=== PATIENT | male | born 1965 | race Caucasian/White ===

== ENCOUNTER 2017-02-28 15:36 | Emergency (ER) | payer MEDICAID, OTHER ==
[~2017-02-28] VITALS: Ht 185.4 cm; Wt 87.5 kg
[~2017-02-28 15:36] MED LIST: BACTDS PO; CEPH-443 PO; HYDR-3498 PO; HYDR-762 PO; IBUP-1542 PO; NAPR-260 PO
[2017-02-28 16:13] VITALS: Ht 185.4 cm; Wt 87.5 kg
[2017-02-28] MEDS ORDERED: KETOROLAC 30 MG INJ IM STA (18:21)
--- NOTE | 2017-02-28 19:22 | RADRPT ---
PROCEDURE: US Lower extremity Venous. CLINICAL INDICATION: right leg pain TECHNIQUE: Multiple sonographic images of the right lower extremity deep venous system was obtaine d utilizing grayscale, color-flow, compressive sonography and doppler imaging with augmentation. Th e images were reviewed on a PACS workstation. COMPARISON: None. FINDINGS: There is normal compressibility and flow within the right common femoral, deep femoral, superficial femoral, posterior tibial, peroneal and popliteal veins. IMPRESSION: No sonographic evidence for deep venous thrombosis. RPTAT:AAJJ Physician Carole Date Time Electronically viewed and signed by Physician Carole on 02/28/2017 19:22 /
--- NOTE | 2017-02-28 19:29 | RADRPT ---
PROCEDURE: XR Ankle. CLINICAL INDICATION: Right ankle pain TECHNIQUE: 3 views of the right ankle were performed. COMPARISON: Radiographs of the right ankle December 13:16 FINDINGS: There is a remote fracture deformity of the calcaneus. There is no definite acute fracture. There is some bone proliferation along the posterior subtalar joint likely degenerative and related to pos t-traumatic arthrosis, less likely extraarticular coalition. There is mild lateral soft tissue swel ling. Talar dome appears normal. IMPRESSION: 1. Remote healed post-traumatic deformity of the calcaneus with post-traumatic posterior subtalar ar throsis. Consider CT or MRI for further assessment as clinically warranted. 2. No radiographic evidence of acute fracture. 3. Mild lateral soft tissue swelling. RPTAT: UU .Wood Mackenzie MD, MD Date Time Electronically viewed and signed by .Wood Mackenzie MD, on 02/28/2017 19:29 .K/
--- NOTE | 2017-02-28 19:30 | RADRPT ---
PROCEDURE: XR Foot. CLINICAL INDICATION: Right foot and ankle pain TECHNIQUE: 3 views of the right foot were performed. COMPARISON: Radiographs of the right ankle December 13:16 FINDINGS: There is a remote fracture deformity of the calcaneus. There is no definite acute fracture. There is some bone proliferation along the posterior subtalar joint likely degenerative and related to pos t-traumatic arthrosis, less likely extraarticular coalition. There is mild lateral soft tissue swel ling. Talar dome appears normal. There is mild osteoarthrosis at the first metatarsophalangeal join t. IMPRESSION: 1. Remote healed post-traumatic deformity of the calcaneus with post-traumatic posterior subtalar ar throsis. Consider CT or MRI for further assessment as clinically warranted. 2. No radiographic evidence of acute fracture. 3. 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 4. Mild lateral soft tissue swelling. RPTAT: UU .Wood Mackenzie MD, MD Date Time Electronically viewed and signed by .Wood Mackenzie MD, on 02/28/2017 19:30 .K/
[2017-02-28] MEDS ORDERED: NAPR-260 PO (19:39)
[2017-02-28] MEDS ORDERED: HYDR-906 PO (19:39)
--- NOTE | 2017-02-28 21:18 | ERD ---
ER Documentation Chief Complaint Date/Time DATE: 02/28/17 TIME: 21:14 Chief Complaint RIGHT ANKLE PAIN 08/22,SWELLING. HPI Patient is a 52-year-old male who presents to the ED with chronic right ankle pain. He states that he had an old fracture about a year ago in his right ankle with no surgery. 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 He states that in the last 3 days he has developed increasing pain in his right ankle. He denies any fever or chills. Denies swelling but states that he has a mild pain in his right calf. Denies redness. Denies numbness or tingling. He states that he does have pain when he walks and applies pressure to his right foot. He denies chest pain, cough, shortness of breath or difficulty breathing. He states that in the past he has taken Vicodin and Bonita but has not taken any medications for the last couple of months for his ankle. He denies headache or dizziness. He denies any new onset trauma or fall. Denies a history of clots. Denies recent surgeries or recent travel. ROS All systems reviewed and are negative except as per history of present illness. Medications Home Meds Active Scripts Naproxen* (Naprosyn*) 500 Mg Tablet, 500 MG PO BID Y for PAIN AND/OR INFLAMMATION, #30 TAB Prov:CHERELLE MOREL PA-C 02/28/17 Hydrocodone/Acetaminophen (Bonita 5-325 Tablet) 1 Each Tablet, 1 TAB PO Q6H Y for PAIN, #5 TAB Prov:CHERELLE MOREL PA-C 02/28/17 Hydrocodone Bit-Acetaminophen* (Bonita*) 5-325 Mg Tab, 1 TAB PO Q6 Y for PAIN, # 20 TAB Prov:CRISTIANO HERRING 12/13/15 Hydrocodone Bit-Acetaminophen* (Bonita*) 5-325 Mg Tab, 1 TAB PO Q6 Y for PAIN, # 10 TAB Prov:REBEKAH CHRISTIAN NP 08/26/15 Cephalexin* (Keflex*) 500 Mg Capsule, 500 MG PO QID for 10 Days, CAP Prov:REBEKAH CHRISTIAN NP 08/26/15 Ibuprofen* (Ibuprofen*) 600 Mg Tablet, 600 MG PO Q6H Y for PA, #30 TAB Prov:GINOREBEKAH Yao BUCKLE SEWER 08/26/15 Sulfamethoxazole-Trimethoprim* (Bactrim* DS) 800-160 Mg Tab, 1 TAB PO BID for 10 Days, TAB Prov:REBEKAH CHRISTIAN MONICA Yao BUCKLE SEWER 08/26/15 Naproxen* (Naprosyn*) 500 Mg Tablet, 500 MG PO BID Y for PAIN AND/OR INFLAMMATION, #30 TAB Prov:MAREK GREENE PA-C 06/23/15 Hydrocodone Bit-Acetaminophen* (Bonita*) 5-325 Mg Tab, 1 TAB PO Q6 Y for PAIN, # 15 TAB Prov:MAREK GREENE PA-C 06/23/15 Hydrocodone Bit-Acetaminophen* (Bonita*) 10-325 Mg Tablet, 1 TAB PO Q6 Y for PAIN , #20 TAB Prov:YULI SEBASTIAN 06/16/15 Allergies Allergies: Coded Allergies: No Known Allergy (Unverified , 06/23/15) PMhx/Soc History of Surgery: No Anesthesia Reaction: No Hx Neurological Disorder: No Hx Respiratory Disorders: No Hx Cardiac Disorders: No Hx Psychiatric Problems: No Hx Miscellaneous Medical Probl: Yes (fx rt ankle) Hx Alcohol Use: Yes Hx Substance Use: No Hx Tobacco Use: Yes (cigaretts) Smoking Status: Never smoker FmHx Family History: No coronary disease, No diabetes, No other Physical Exam Vitals Vital Signs Date Time Temp Pulse Resp B/P Pulse Ox O2 Delivery O2 Flow Rate FiO2 02/28/17 16:13 98.6 98 18 159/97 98 Physical Exam GENERAL: Well-developed, well-nourished male. Appears in no acute distress. LUNG: Clear to auscultation bilaterally. No rhonchi, wheezing, rales or coarse breath sounds. HEART: Regular rate and rhythm. No murmurs, rubs or gallops. Extremities: Equal pulses bilaterally. No peripheral clubbing, cyanosis or edema. No unilateral leg swelling. Tenderness to lateral malleoli. No open wounds, deformities or step offs. No laceration. No signs of infection. Pulses intact bilaterally. Non tender to proximal fibular. Sensation intact bilaterally. Negative Lidya sign. dorsiflexion, extension, inversion and eversion intact bilaterally. NEUROLOGIC: Alert and oriented. Moving all four extremities. 5/5 strength in all extremities. Normal speech. Steady gait. SKIN: Normal color. Warm and dry. No rashes or lesions. Capillary refill < 2 seconds Results 24 hrs Current Medications Medications (Trade) Dose Ordered Sig/Olesya Route PRN Reason Start Time Stop Time Status Last Admin Dose Admin Ketorolac Tromethamine (Toradol) 30 mg ONCE STAT IM 02/28/17 18:21 02/28/17 18:25 DC 02/28/17 18:30 Procedures/MDM ER COURSE: I kept the patient and/or family informed of laboratory and diagnostic imaging results throughout the emergency room course. IMAGING STUDIES [place] [address] Radiology Main Line: [phone] DIAGNOSTIC IMAGING REPORT Patient: SARAH DILL : 1965 Age: 52 Sex: M MR #: [id number] DOS: 02/28/17 1821 Ordering MD: CHERELLE MOREL PA-C Location: [facility] Room/Bed: PROCEDURE: XR Ankle. CLINICAL INDICATION: Right ankle pain TECHNIQUE: 3 views of the right ankle were performed. COMPARISON: Radiographs of the right ankle December 13 20:16 FINDINGS: There is a remote fracture deformity of the calcaneus. There is no definite acute fracture. There is some bone proliferation along the posterior subtalar joint likely degenerative and related to post-traumatic arthrosis, less likely extraarticular coalition. There is mild lateral soft tissue swelling. Talar dome appears normal. IMPRESSION: 1. Remote healed post-traumatic deformity of the calcaneus with post-traumatic posterior subtalar arthrosis. Consider CT or MRI for further assessment as clinically warranted. 2. No radiographic evidence of acute fracture. 3. Mild lateral soft tissue swelling. RPTAT: UU .Wood Mackenzie MD, Date Time Electronically viewed and signed by .Wood Mackenzie MD, on 02/28/2017 19: 29 .K/ CC: CHERELLE MOREL PA-C [place] [address] Radiology Main Line: [phone] DIAGNOSTIC IMAGING REPORT Patient: SARAH DILL : 1965 Age: 52 Sex: M MR #: [id number] DOS: 02/28/171820 Ordering MD: CHERELLE MOREL PA-C Location: [facility] Room/Bed: PROCEDURE: US Lower extremity Venous. CLINICAL INDICATION: right leg pain TECHNIQUE: Multiple sonographic images of the right lower extremity deep venous system was obtained utilizing grayscale, color-flow, compressive sonography and doppler imaging with augmentation. The images were reviewed on a PACS workstation. COMPARISON: None. FINDINGS: There is normal compressibility and flow within the right common femoral, deep femoral, superficial femoral, posterior tibial, peroneal and popliteal veins. IMPRESSION: No sonographic evidence for deep venous thrombosis. RPTAT:AAJJ Raul Rizzo, Physician Date Time Electronically viewed and signed by Raul Rizzo Physician on 02/28/2017 19: 22 MC/ CC: CHERELLE MOREL PA-C [place] [address] Radiology Main Line: [phone] DIAGNOSTIC IMAGING REPORT Patient: SARAH DILL : 1965 Age: 52 Sex: M MR #: [id number] DOS: 02/28/171820 Ordering MD: CHERELLE MOREL PA-C Location: [facility] Room/Bed: PROCEDURE: XR Foot. CLINICAL INDICATION: Right foot and ankle pain TECHNIQUE: 3 views of the right foot were performed. COMPARISON: Radiographs of the right ankle December 13 20:16 FINDINGS: There is a remote fracture deformity of the calcaneus. There is no definite acute fracture. There is some bone proliferation along the posterior subtalar joint likely degenerative and related to post-traumatic arthrosis, less likely extraarticular coalition. There is mild lateral soft tissue swelling. Talar dome appears normal. There is mild osteoarthrosis at the first metatarsophalangeal joint. IMPRESSION: 1. Remote healed post-traumatic deformity of the calcaneus with post-traumatic posterior subtalar arthrosis. Consider CT or MRI for further assessment as clinically warranted. 2. No radiographic evidence of acute fracture. 3. 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 4. Mild lateral soft tissue swelling. RPTAT: UU .Wood Mackenzie MD, MD Date Time Electronically viewed and signed by .Wood Mackenzie MD, on 02/28/2017 19: 30 .K/ CC: CHERELLE MOREL PA-C MEDICAL DECISION MAKING: This is a 52-year-old male who presents with chronic right ankle pain. Vital signs were reviewed. Patient is afebrile. Patient is not hypoxic. Patient is not toxic or ill-appearing. His x-rays of by radiologist shows an old healed fracture. Low suspicion for dislocation, fracture, septic joint, compartment syndrome, osteomyelitis, avascular necrosis, DVT, Achilles tendon rupture, cellulitis. At this time, unable to rule out any tendon and ligament injuries. Low suspicion for dislocation, fracture, septic joint, compartment syndrome, osteomyelitis, cellulitis, avascular necrosis, neurological injury, vascular injury, tendon laceration. I have low suspicion for drug abuse. His ultrasound is read by radiologist was also unremarkable. Low suspicion for DVT or PE. [Deng wrap Assessment: Neurovascularly intact post deng wrap placement with good fit.] Patient's extremity symptoms have stabilized while they have been evaluated in the department and are appropriate for outpatient follow up. DISCHARGE: At this time, patient is stable for discharge and outpatient management with no new complaints during the ER course. Patient was sent home with Vandana García for pain and a note for work. Patient was also given an Deng wrap and crutches.. Patient will be discharged home with instructions to recheck for new or worsening symptoms such as fever, nausea, weakness, LOC and to follow up with primary care in the next 1-2 days. Patient was advised to return to the ER for any new or worsening symptoms. Plan was discussed and patient and/or family understands and agrees. Home instructions were given. Departure Diagnosis: Primary Impression: Ankle pain Laterality: right Chronicity: chronic Qualified Code: M25.571 - Chronic pain of right ankle Condition: Stable Patient Instructions: Sprain, Ankle, With X-Ray Referrals: NO PRIMARY,CARE PHYSICIAN (PCP) Additional Instructions: Call your primary care doctor TOMORROW for an appointment during the next 1-2 days.See the doctor sooner or return here if your condition worsens before your appointment time. CHERELLE MOREL PA-C Feb 28, 2017 21:18
== END 2017-02-28 20:00 | disposition home or self-care (01) ==
LOC: FTE 15:36
DX: M25.571 Pain in right ankle and joints of right foot (principal); F17.210 Nicotine dependence, cigarettes, uncomplicated
CPT/HCPCS: 73610; 73630; 93971; 96372; J1885; Z7502

== ENCOUNTER 2019-04-16 21:14 | Emergency (ER) | payer SELFPAY ==
[~2019-04-16] VITALS: Ht 185.4 cm; Wt 92.0 kg
[~2019-04-16 21:14] MED LIST changes: +HYDR-4011 PO; -NAPR-260 PO; +NAPR-985 PO
[2019-04-16 22:53] VITALS: BP 161/104; PULSE 106; RESP 32; Ht 185.4 cm; Wt 92.0 kg
== END 2019-04-17 02:39 | disposition left against medical advice (07) ==
LOC: E/R 21:14
DX: Z53.21 Procedure and treatment not carried out due to patient leaving prior to being seen by health care provider (principal)

== ENCOUNTER 2019-04-20 00:02 | Emergency (ER) | payer SELFPAY ==
[~2019-04-20] VITALS: Ht 175.3 cm; Wt 91.7 kg
[2019-04-20 00:06] VITALS: Ht 175.3 cm; Wt 91.7 kg
[2019-04-20] MEDS ORDERED: LEVALBUTEROL (NEB) 1.25 MG/0.5 ML AMP INH STA (00:26)
[2019-04-20] MEDS ORDERED: predniSONE 20 MG TAB PO STA (00:26)
[2019-04-20] MEDS ORDERED: IPRATROPIUM (NEB) 0.5 MG/2.5 ML AMP NEB STA (00:26)
[2019-04-20 02:04] VITALS: BP 133/83; PULSE 98; RESP 16
[2019-04-20] MEDS ORDERED: AZIT250T13 PO ×2 (02:59)
[2019-04-20] MEDS ORDERED: PRED20TA PO (03:00)
[2019-04-20] MEDS ORDERED: ALBU18HF INHALATION (03:00)
[2019-04-20] MEDS ORDERED: AZIT250T PO (03:01)
--- NOTE | 2019-04-20 03:04 | ERD ---
ER Documentation Chief Complaint Chief Complaint sob x's 4 days, hx of asthma ROS All systems reviewed and are negative except as per history of present illness. Medications Home Meds Active Scripts Azithromycin* (Zithromax*) 250 Mg Tablet, 250 MG PO .GomezPACK DIRECTED for copd, #6 TAB TAKE 500 MG (2 TABS) THE FIRST DAY THEN 250 MG (1 TAB) DAYS 2-5 Prov:ABBEY MONDRAGON DO 04/20/19 Prednisone (Prednisone) 20 Mg Tablet, 40 MG PO DAILY for copd for 4 Days, #8 TAB Prov:ABBEY MONDRAGON DO 04/20/19 Albuterol Sulfate* (Ventolin HFA*) 18 Gm Hfa.aer.ad, 2 PUFF INHALATION Q4H PRN for SHORTNESS OF BREATH, #1 INHALER 1 Refill Prov:ABBEY MONDRAGON DO 04/20/19 Naproxen* (Naprosyn*) 500 Mg Tablet, 500 MG PO BID PRN for PAIN AND/OR INFLAMMATION, #30 TAB Prov:CHERELLE MOREL PA-C 02/28/17 Hydrocodone/Acetaminophen (Eagle 5-325 Tablet) 1 Each Tablet, 1 TAB PO Q6H PRN for PAIN, #5 TAB Prov:CHERELLE MOREL PA-C 02/28/17 Hydrocodone Bit-Acetaminophen* (Eagle*) 5-325 Mg Tab, 1 TAB PO Q6 PRN for PAIN, #20 TAB Prov:CRISTIANO HERRING 12/13/15 Hydrocodone Bit-Acetaminophen* (Eagle*) 5-325 Mg Tab, 1 TAB PO Q6 PRN for PAIN, #10 TAB Prov:REBEKAH CHRISTIAN NP 08/26/15 Cephalexin* (Keflex*) 500 Mg Capsule, 500 MG PO QID for 10 Days, CAP Prov:REBEKAH CHRISTIAN NP 08/26/15 Ibuprofen* (Ibuprofen*) 600 Mg Tablet, 600 MG PO Q6H PRN for PA, #30 TAB Prov:REBEKAH CHRISTIAN NP 08/26/15 Sulfamethoxazole-Trimethoprim* (Bactrim* DS) 800-160 Mg Tab, 1 TAB PO BID for 10 Days, TAB Prov:REBEKAH CHRISTIAN NP 08/26/15 Naproxen* (Naprosyn*) 500 Mg Tablet, 500 MG PO BID PRN for PAIN AND/OR INFLAMMATION, #30 TAB Prov:MAREK GREENE PA-C 06/23/15 Hydrocodone Bit-Acetaminophen* (Eagle*) 5-325 Mg Tab, 1 TAB PO Q6 PRN for PAIN, #15 TAB Prov:MAREK GREENE PA-C 06/23/15 Hydrocodone Bit-Acetaminophen* (Eagle*) 10-325 Mg Tablet, 1 TAB PO Q6 PRN for PAIN, #20 TAB Prov:YULI SEBASTIANRamírez 06/16/15 Discontinued Scripts Azithromycin* (Azithromycin*) 250 Mg Tablet, 500 MG PO ONCE, #1 TAB Prov:ABBEY MONDRAGON DO 04/20/19 Azithromycin* (Azithromycin*) 250 Mg Tablet, 250 MG PO DAILY, #4 TAB Prov:ABBEY MONDRAGON DO 04/20/19 Allergies Allergies: Coded Allergies: No Known Allergy (Unverified , 06/23/15) PMhx/Soc History of Surgery: No Anesthesia Reaction: No Hx Neurological Disorder: No Hx Respiratory Disorders: Yes (ASTHMA) Hx Cardiac Disorders: No Hx Psychiatric Problems: No Hx Miscellaneous Medical Probl: Yes (fx rt ankle) Hx Alcohol Use: No Hx Substance Use: No Hx Tobacco Use: Yes (cigaretts) Smoking Status: Current every day smoker Physical Exam Vitals Vital Signs Date Temp Pulse Resp B/P (MAP) Pulse Ox O2 O2 Flow FiO2 Time Delivery Rate 04/20/19 98.2 98 16 133/83 96 Room Air 02:04 (100) 04/20/19 112 18 93 21 00:36 04/20/19 97.4 123 18 156/90 97 00:06 (112) Physical Exam Const: No acute distress Head: Atraumatic Eyes: Normal Conjunctiva ENT: Normal External Ears, Nose and Mouth. Neck: Full range of motion. No meningismus. Resp: Clear to auscultation bilaterally Cardio: Regular rate and rhythm, no murmurs Abd: Soft, non tender, non distended. Normal bowel sounds Skin: No petechiae or rashes Back: No midline or flank tenderness Ext: No cyanosis, or edema Neur: Awake and alert Psych: Normal Mood and Affect Results 24 hrs Current Medications Medications Dose Sig/Olesya Start Time Status Last (Trade) Ordered Route PRN Stop Time Admin Dose Reason Admin Ipratropium 0.5 mg ONCE STAT 04/20/19 DC 04/20/19 [place] NEB 00:26 04/20/19 00:36 (Atrovent 00:30 0.02% (Neb)) Prednisone 40 mg ONCE STAT 04/20/19 DC 04/20/19 (Prednisone) PO 00:26 04/20/19 00:35 00:30 1.25 mg ONCE STAT 04/20/19 DC 04/20/19 Levalbuterol INH 00:26 04/20/19 00:36 (Xopenex 00:30 Neb) Departure Diagnosis: Primary Impression: COPD exacerbation Additional Impression: Tobacco use Condition: Fair Patient Instructions: Chronic Lung Disease: Tips for Quitting Smoking , Copd Flare Referrals: [facility] YOU HAVE RECEIVED A MEDICAL SCREENING EXAM AND THE RESULTS INDICATE THAT YOU DO NOT HAVE A CONDITION THAT REQUIRES URGENT TREATMENT IN THE EMERGENCY DEPARTMENT. FURTHER EVALUATION AND TREATMENT OF YOUR CONDITION CAN WAIT UNTIL YOU ARE SEEN IN YOUR DOCTORS OFFICE WITHIN THE NEXT 1-2 DAYS. IT IS YOUR RESPONSIBILITY TO MAKE AN APPOINTMENT FOR FOLOW-UP CARE. IF YOU HAVE A PRIMARY DOCTOR --you should call your primary doctor and schedule an appointment IF YOU DO NOT HAVE A PRIMARY DOCTOR YOU CAN CALL OUR PHYSICIAN REFERRAL HOTLINE AT IF YOU CAN NOT AFFORD TO SEE A PHYSICIAN YOU CAN CHOSE FROM THE FOLLOWING [facility] [address] [facility]. [facility] [address] [facility] [address] [facility] [facility] [address] [facility]. [facility] [address] [facility]. [facility]. [address] Additional Instructions: Call your primary care doctor TOMORROW for an appointment during the next 1-2 days.See the doctor sooner or return here if your condition worsens before your appointment time. ABBEY MONDRAGON DO Apr 20, 2019 03:04
== END 2019-04-20 03:11 | disposition home or self-care (01) ==
LOC: FTE 00:02
DX: J44.1 Chronic obstructive pulmonary disease with (acute) exacerbation (principal); F17.210 Nicotine dependence, cigarettes, uncomplicated
CPT/HCPCS: 71045; 94664; 99284; J7512; 93005